=== PATIENT | male | born 1970 | race Caucasian/White ===

== ENCOUNTER 2019-07-12 14:41 | Day surgery (SDC) | payer OTHER ==
[~2019-07-12] VITALS: Ht 177.8 cm; Wt 99.5 kg
[~2019-07-12 14:41] MED LIST: LISI1TAB6 PO
[2019-07-12 15:54] VITALS: Ht 177.8 cm; Wt 99.5 kg
[2019-07-12 20:37] VITALS: BP 149/73; PULSE 86; RESP 13
== END 2019-07-12 21:09 | disposition home or self-care (01) ==
LOC: SDS 14:41
PROVIDERS: ATTEND Podiatrist Foot & Ankle Surgery
DX: S92.252D Displaced fracture of navicular [scaphoid] of left foot, subsequent encounter for fracture with routine healing (principal); X58.XXXD Exposure to other specified factors, subsequent encounter; E11.9 Type 2 diabetes mellitus without complications; I10 Essential (primary) hypertension
CPT/HCPCS: 28465; 73630; 82962; J0360; J0690; J1100; J1885; J2250; J2405; J2765; J2795; J3010; Z7512; Z7610